=== PATIENT | female | born 1960 | race Caucasian/White ===

== ENCOUNTER 2019-08-17 07:25 | Outpatient (CLI) | payer OTHER, SELFPAY ==
[2019-08-17 08:16] LABS: Basophils Percent Auto 0.7 % (0.2-1.2); Eosinophils Absolute Auto 0.2 K/mm3 (0-0.3); Eosinophils Percent Auto 3.6 % (0-4.4); Hematocrit 44.1 % (37.0-47.0); Immature Granulocyte Absolute 0.01 K/mm3 (0.00-0.031); Immature Granulocyte Percent A 0.2 % (0-0.5); Lymphocytes Absolute Auto 1.38 K/mm3 (0.9-3.2); Lymphocytes Percent Auto 33.1 % (18.3-44.2); Mean Corpuscular Hemoglobin 32.9 pg (26-34); Mean Corpuscular Volume 96.7 fl (80-100); Mean Platelet Volume 9.8 fl (7.4-10.4); Monocytes Absolute Auto 0.3 K/mm3 (0.1-0.6); Monocytes Percent Auto 7.9 % (2.6-8.5); Neutrophils Absolute Auto 2.3 K/mm3 (1.3-6.7); Neutrophils Percent Auto 54.5 % (45.5-73.1); Platelet Count Result 219 k/mm3 (150-375); Red Blood Count 4.56 M/mm3 (4.2-5.4); Red Cell Distribution Width 12.1 % (11.5-14.5); White Blood Count 4.2 K/mm3 (4.5-10.0)
[2019-08-17 08:21] LABS: Alanine Aminotransferase 24 U/L (4-35); Albumin Level 4.5 g/dL (3.5-5.1); Alkaline Phosphatase 86 U/L (38-126); Aspartate Amino Transferase 27 U/L (14-36); Bilirubin,Total 0.4 mg/dL (0.2-1.3); Blood Urea Nitrogen 16 mg/dL (7-17); Calcium 9.3 mg/dL (8.4-10.2); Carbon Dioxide 29 mmol/L (22-30); Chloride 107 mmol/L (98-107); Cholesterol 177 mg/dL (0-200); Estimated Glomerular Filt Rate > 60; Glucose 104 mg/dL (65-105); HDL Direct 47 mg/dL; Potassium 4.3 mmol/L (3.4-5.0); Sodium 141 mmol/L (137-145); Triglycerides 106 mg/dL (<150)
[2019-08-17 08:31] LABS: LDL Cholesterol Direct 85 mg/dL
[2019-08-17 08:57] LABS: Free T4 Free Thyroxine 0.94 ng/mL (0.78-2.19)
== END 2019-08-17 07:26 | disposition home or self-care (01) ==
LOC: ANHLAB 07:28
PROVIDERS: PCP Family Medicine; Visit Provider Family Medicine
DX: Z00.00 Encounter for general adult medical examination without abnormal findings (principal); Z13.1 Encounter for screening for diabetes mellitus; Z13.0 Encounter for screening for diseases of the blood and blood-forming organs and certain disorders involving the immune mechanism; Z13.220 Encounter for screening for lipoid disorders; Z11.59 Encounter for screening for other viral diseases
CPT/HCPCS: 36415; 80053; 80061; 84439; 84443; 85025

== ENCOUNTER 2019-12-15 15:48 | Outpatient (CLI) | payer OTHER, SELFPAY ==
--- NOTE | ~2019-12-15 | MM_ITS ---
EXAMINATION: MM screening jovanni BI w tam HISTORY: Screening mammogram TECHNIQUE: Craniocaudal and mediolateral oblique 3-D tomosynthesis images were obtained and synthetic 2-D images were generated. CAD analysis was submitted and interpreted. COMPARISON: 11/18/2018, 09/11/2017, 08/29/2016 bilateral digital screening mammogram examinations BREAST PARENCHYMAL COMPOSITION: There are scattered areas of fibroglandular density. FINDINGS: There is no evidence of suspicious mass, calcification, or architectural distortion to sugg est malignancy in either breast. There has been no suspicious interval change. IMPRESSION: 1. No mammographic evidence of malignancy. 2. Recommend routine screening mammography in one year. BI-RADS Category 1: Negative Reviewed, dictated and finalized at location A.
== END 2019-12-15 15:49 | disposition home or self-care (01) ==
LOC: ANHIMG 15:50
PROVIDERS: PCP Family Medicine; Visit Provider Family Medicine
DX: Z12.31 Encounter for screening mammogram for malignant neoplasm of breast (principal)
CPT/HCPCS: 77063; 77067

== ENCOUNTER 2021-03-14 15:28 | Outpatient (CLI) | payer OTHER, SELFPAY ==
--- NOTE | ~2021-03-14 | MM_ITS ---
EXAMINATION: MM screening jovanni BI w tam HISTORY: Screening TECHNIQUE: Craniocaudal and mediolateral oblique 3-D tomosynthesis images were obtained and synthetic 2-D images were generated. CAD analysis was submitted and interpreted. COMPARISON: Comparison to multiple prior studies sequentially, with oldest reviewed study dated 07/18. BREAST PARENCHYMAL COMPOSITION: Breast composed of scattered areas of fibroglandular density FINDINGS: There is no evidence of suspicious mass, calcification, or architectural distortion to sugg est malignancy in either breast. There has been no suspicious interval change. IMPRESSION: 1. No mammographic evidence of malignancy. 2. Recommend routine screening mammography in one year. BI-RADS Category 1: Negative Reviewed, dictated and finalized at location A. N [employer]
== END 2021-03-14 15:29 | disposition home or self-care (01) ==
LOC: ANHIMG 15:31
PROVIDERS: PCP Family Medicine; Visit Provider Physician Assistant
DX: Z12.31 Encounter for screening mammogram for malignant neoplasm of breast (principal)
CPT/HCPCS: 77063; 77067

== ENCOUNTER 2022-05-22 14:49 | Outpatient (CLI) | payer OTHER, SELFPAY ==
--- NOTE | ~2022-05-22 | MM_ITS ---
EXAMINATION: MM screening jovanni BI w tam HISTORY: Screening TECHNIQUE: Craniocaudal and mediolateral oblique 3-D tomosynthesis images were obtained and synthetic 2-D images were generated. CAD analysis was submitted and interpreted. COMPARISON: Comparison to multiple prior studies sequentially, with oldest reviewed study dated 07/18. BREAST PARENCHYMAL COMPOSITION: The breasts are heterogeneously dense, which may obscure small masses FINDINGS: There are developing asymmetries in the lower central aspect of the right breast, middle th ird. The left breast is stable without evidence for malignancy. IMPRESSION: 1. Developing right breast asymmetries. 2. Additional mammographic views and possible breast ultrasound are recommended. BI-RADS Category 0: Incomplete: Needs additional imaging evaluation. Reviewed, dictated and finalized at location A. IMPRESSION: 1. Developing right breast asymmetries. 2. Additional mammographic views and possible breast ultrasound are recommended . BI-RADS Category 0: Incomplete: Needs additional imaging evaluation.
--- NOTE | ~2022-05-22 | DEXA_ITS ---
Bone Density Report Name: BOYD MARTELL Age: 61 Sex: Female Ethnicity: White Date of : 1960 Indication: postmenopausal; screening for osteoporosis; parental hip fracture; hysterectomy; Referring Provider: DIANNE, KERI Study: Bone densitometry was performed. Exam Date: May 22, 2022 Accession number: [id number] Bone Density: Region BMD T-score Z-score Classification AP Spine(L1-L4) 0.899 -1.3 0.2 Osteopenia Femoral Neck (Left) 0.736 -1.0 0.4 Normal Total Hip (Left) 0.869 -0.6 0.4 Normal Femoral Neck (Right) 0.706 -1.3 0.1 Osteopenia Total Hip (Right) 0.818 -1.0 0.0 Normal Total Hip Mean 0.843 -0.8 0.2 Normal World Health Organization criteria for BMD impression classify patients as: Normal (T-score at or above -1.0), Osteopenia (T-score between -1.0 and -2.5), or Osteoporosis (T-score at or below -2.5). 10-year Fracture Risk(1): Major Osteoporotic Fracture 15% Hip Fracture 1.1% Reported Risk Factors: [place] (), Neck BMD=0.706, BMI=29.5, parental fracture, smoking (1) FRAX(R) Version 3.08. Fracture probability calculated for an untreated patient. Fracture probability may be lower if the patient has received treatment. Clinical Information Provided by Patient: Parent has had a hip fracture Smokes Has used the following medications: Vitamin D Has the following medical conditions: Hysterectomy Patient maximum height was 68.5 Menopause Age: 45 No regular weight bearing exercise Drinks caffeinated beverages Onset of menses at age 14 Number of children 3 Impression: The patient has low bone mass, based on the Total Spine T-score. The patient has an estimated ten-year risk of hip fracture of 1.1% and an estimated ten-year risk of major fracture of 15%, based on the WHO FRAX algorithm. The patient has risk factors, including: parental hip fracture, smoking. Discussion: BONE DENSITY IS LOW AT ONE OR MORE SKELETAL SITES. This patient's lowest T-score is low at one or more skeletal sites. It meets the World Health Organization's (WHO) criteria for ?low bone mass? (T-score between -1.0 and -2.5). The patient's 10-year risk of fracture as calculated by FRAX is less than the threshold where pharmacological therapy is recommended by the National Osteoporosis Foundation (NOF). However, all treatment decisions require clinical judgment and consideration of individual patient factors, including patient preferences, comorbidities, previous drug use, risk factors not captured in the FRAX model (e.g., frailty, falls, vitamin D deficiency, increased bone turnover, interval significant decline in bone density) and possible under or overestimation of fracture risk by FRAX. The patient should follow a healthful lifestyle (good nutrition with adequate calcium and vi
== END 2022-05-22 14:50 | disposition home or self-care (01) ==
PROVIDERS: PCP Family Medicine; Visit Provider Family Medicine
DX: Z12.31 Encounter for screening mammogram for malignant neoplasm of breast (principal); Z78.0 Asymptomatic menopausal state; R92.8 Other abnormal and inconclusive findings on diagnostic imaging of breast; M85.89 Other specified disorders of bone density and structure, multiple sites
CPT/HCPCS: 77063; 77067; 77080

== ENCOUNTER 2022-06-23 13:49 | Outpatient (CLI) | payer OTHER, SELFPAY ==
--- NOTE | ~2022-06-23 | MMUS_ITS ---
EXAMINATION: MM diagnostic jovanni RT w tam, US breast RT limited HISTORY: Focal asymmetry of the right breast on screening mammogram TECHNIQUE: Additional 3-D tomosynthesis images of the right breast were performed and synthetic 2-D i mages were generated. CAD analysis was submitted and interpreted. High resolution limited right breas t ultrasound was performed. COMPARISON: 05/23/2019, 03/14/2021, 12/15/2019 FINDINGS: MAMMOGRAPHIC FINDINGS: There is an approximately 3.7 x 1.3 cm irregular, spiculated, high density mass in the middle third o f the lower-outer quadrant of the breast at the 7:00 location, 5 cm from the nipple. There is mild as sociated architectural distortion. ULTRASOUND: There is an approximately 2.3 x 1.5 cm irregular, hypoechoic, parallel mass with microlobulated jasmin ns, posterior to suggest shadowing, and internal vascularity at the 7:00 location 1 cm from the nippl e. IMPRESSION: 1. Suspicious right breast mass. 2. Ultrasound-guided biopsy is recommended. BI-RADS category 5, highly suggestive of malignancy. Reviewed, dictated and finalized at location A. IMPRESSION: 1. Suspicious right breast mass. 2. Ultrasound-guided biopsy is recommended. BI-RADS category 5, highly suggestive of malignancy.
== END 2022-06-23 13:50 | disposition home or self-care (01) ==
PROVIDERS: PCP Family Medicine; Visit Provider Family Medicine
DX: R92.8 Other abnormal and inconclusive findings on diagnostic imaging of breast (principal)
CPT/HCPCS: 76642; 77061; 77065; G0279